=== PATIENT | female | born 1995 | race Hispanic/Latino ===

== ENCOUNTER → 2022-10-24 | Outpatient (REF) | payer SELFPAY ==
[2022-10-24 22:56] LABS: APPEARANCE, URINE CLEAR (CLEAR); BACTERIA, URINE AUTO NEGATIVE (NEGATIVE); BILIRUBIN, URINE AUTO NEGATIVE (NEGATIVE); BLOOD, URINE BLOOD NEGATIVE (NEGATIVE); COLOR, URINE YELLOW (YELLOW); GLUCOSE, URINE (UA) AUTO NEGATIVE (NEGATIVE); KETONE, URINE AUTO NEGATIVE (NEGATIVE); LEUKOCYTE ESTERASE, URINE AUTO NEGATIVE (NEGATIVE); MUCUS, URINE SMALL (NEGATIVE); NITRITE, URINE AUTO NEGATIVE (NEGATIVE); PROTEIN, URINE AUTO NEGATIVE (NEGATIVE); RBC, URINE AUTO 0 /HPF (0-3); SPECIFIC GRAVITY URINE AUTO 1.014 (1.002-1.035); SQUAMOUS EPITHELIAL CELL UR AU 1 /HPF (0-6); UROBILINOGEN, URINE AUTO 0.2 mg/dL (0.0-2.0); WBC, URINE AUTO 1 /HPF (0-3)
[2022-10-25 00:25] LABS: GC DNA AMPLIFICATION NEGATIVE (NEGATIVE)
== END ==
LOC: M LAB REF 22:46
PROVIDERS: ATTEND Physician Assistant
DX: N39.0 Urinary tract infection, site not specified (principal); Z20.2 Contact with and (suspected) exposure to infections with a predominantly sexual mode of transmission

== ENCOUNTER 2023-01-22 14:38 | Emergency (ER) | payer OTHER ==
[~2023-01-22] VITALS: Ht 162.6 cm; Wt 62.6 kg
[2023-01-22 17:38] LABS: BASO # 0.1 10^3/uL (0.0-0.2); BASO % 0.5 % (0.0-1.0); EOS % 0.3 % (0.0-3.0); HEMATOCRIT 45.6 % (36.0-47.0); HEMOGLOBIN 15.7 g/dl (12.0-15.5); LYMPH # 1.7 10^3/uL (1.5-5.0); LYMPH % 16.6 % (24.0-44.0); MEAN CORPUSCULAR HEMOGLOBIN 32.6 pg (27.0-33.0); MEAN CORPUSCULAR HGB CONC 34.4 g/dl (32.0-36.5); MEAN CORPUSCULAR VOLUME 94.8 fl (80.0-96.0); MONO # 0.4 10^3/uL (0.0-0.8); MONO % 4.2 % (2.0-8.0); NEUTROPHILS # 7.9 10^3/uL (1.5-8.5); NEUTROPHILS % 78.2 % (36.0-66.0); PLATELET COUNT, AUTOMATED 270 10^3/uL (150-450); RED BLOOD COUNT 4.81 10^6/uL (4.00-5.40); WHITE BLOOD COUNT 10.1 10^3/uL (4.0-10.0)
[2023-01-22 18:10] LABS: LIPASE 23 U/L (12-53)
[2023-01-22 18:12] LABS: ALBUMIN 4.8 G/DL (3.2-5.2); ALKALINE PHOSPHATASE 59 U/L (46-116); ALT/SGPT 56 U/L (7.0-40); AST/SGOT 26 U/L (<34); BILIRUBIN,DIRECT 0.5 MG/DL (<0.4); BILIRUBIN,TOTAL 1.3 MG/DL (0.3-1.2); BLOOD UREA NITROGEN 13 MG/DL (9-23); CALCIUM LEVEL 9.6 MG/DL (8.5-10.1); CARBON DIOXIDE LEVEL 30 MMOL/L (20-31); CHLORIDE LEVEL 106 MMOL/L (98-107); CREATININE FOR GFR 0.57 MG/DL (0.55-1.30); GLOMERULAR FILTRATION RATE > 60.0 (>60); GLUCOSE, FASTING 101 MG/DL (60-100); POTASSIUM SERUM 4.3 MMOL/L (3.5-5.1); SODIUM LEVEL 144 MMOL/L (136-145); TOTAL PROTEIN 8.1 G/DL (5.7-8.2)
[2023-01-22 18:19] LABS: HCG, SERUM QUALITATIVE NEGATIVE (NEGATIVE)
[2023-01-22 18:52] VITALS: BP 120/74; TEMP 98.7; O2SAT 99
[2023-01-22] MEDS ORDERED: ONDANSETRON 4MG 2ML VIAL IV ONE (19:10)
[2023-01-22] MEDS ORDERED: NS 1,000 ML IV ONE (19:10)
[2023-01-22] MEDS ORDERED: KETOROLAC 30 MG/ML 1ML VIAL IV ONE (19:10)
[2023-01-22] MEDS ORDERED: ISOVUE-370 76% 100ML VIAL As Ordered ONE (19:12)
[2023-01-22] MEDS ORDERED: KETO10TAB PO (20:05)
[2023-01-22] MEDS ORDERED: ONDA4TAB6 PO (20:05)
== END 2023-01-22 20:22 | disposition home or self-care (01) ==
LOC: M ED 14:38
DX: N83.201 Unspecified ovarian cyst, right side (principal); F17.290 Nicotine dependence, other tobacco product, uncomplicated
CPT/HCPCS: 74177; 80048; 80076; 83690; 84703; 85025; 96360; 96374; 99284; J1885; J2405; Q9967

== ENCOUNTER 2024-04-04 15:45 | Inpatient (IN) | payer OTHER ==
[~2024-04-04] VITALS: Ht 160 cm; Wt 100.0 kg
[~2024-04-04 15:45] MED LIST: KETO10TAB PO; ONDA-282 PO
[2024-04-04 16:17] LABS: HEMATOCRIT 42.1 % (36.0-47.0); HEMOGLOBIN 14.4 g/dl (12.0-15.5); MEAN CORPUSCULAR HEMOGLOBIN 32.1 pg (27.0-33.0); MEAN CORPUSCULAR HGB CONC 34.2 g/dl (32.0-36.5); PLATELET COUNT, AUTOMATED 241 10^3/uL (150-450); RED BLOOD COUNT 4.48 10^6/uL (4.00-5.40); WHITE BLOOD COUNT 7.3 10^3/uL (4.0-10.0)
[2024-04-04 16:51] LABS: AMPHETAMINES LEVEL URINE NEGATIVE (NEGATIVE); BARBITURATES URINE NEGATIVE (NEGATIVE)
[2024-04-04 16:53] LABS: BENZODIAZEPINES URINE NEGATIVE (NEGATIVE); CANNABINOIDS URINE NEGATIVE (NEGATIVE); COCAINE METABOLITE URINE NEGATIVE (NEGATIVE); METHADONE URINE NEGATIVE (NEGATIVE); OPIATES URINE NEGATIVE (NEGATIVE); PHENCYCLIDINE URINE NEGATIVE (NEGATIVE)
[2024-04-04 16:53] LABS: ETHYL ALCOHOL (ETHANOL) < 0.003 % (0.000-0.010)
[2024-04-04 16:54] LABS: SALICYLATE LEVEL < 3.0 MG/DL (<30)
[2024-04-04 16:55] LABS: ALBUMIN 4.5 G/DL (3.2-5.2); ALKALINE PHOSPHATASE 50 U/L (35-104); ALT/SGPT 16 U/L (7.0-40); AST/SGOT 13 U/L (<34); BILIRUBIN,DIRECT 0.1 MG/DL (<0.4); BILIRUBIN,TOTAL 0.6 MG/DL (0.3-1.2); BLOOD UREA NITROGEN 14 MG/DL (9-23); CALCIUM LEVEL 9.3 MG/DL (8.5-10.1); CARBON DIOXIDE LEVEL 26 MMOL/L (20-31); CHLORIDE LEVEL 109 MMOL/L (98-107); CREATININE FOR GFR 0.57 MG/DL (0.55-1.30); GLOMERULAR FILTRATION RATE > 60.0 (>60); GLUCOSE, FASTING 88 MG/DL (60-100); POTASSIUM SERUM 4.8 MMOL/L (3.5-5.1); SODIUM LEVEL 143 MMOL/L (136-145); TOTAL PROTEIN 7.6 G/DL (5.7-8.2)
[2024-04-04 16:58] LABS: THYROID STIMULATING HORMONE 1.515 uIU/ML (0.55-4.78)
[2024-04-04 17:46] LABS: HCG, SERUM QUALITATIVE NEGATIVE (NEGATIVE)
[2024-04-04] MEDS ORDERED: MED REC CURRENTLY UNOBTAINABLE XX SCH (18:05)
[2024-04-04] MEDS ORDERED: OLANZapine ORAL DISINTEGRATING TAB 5MG PO PRN (18:40)
[2024-04-04] MEDS ORDERED: MAALOX 30 ML SUSP *UDC PO PRN (18:40)
[2024-04-04] MEDS ORDERED: MOM 30ML SUSPENSION UDC PO PRN (18:40)
[2024-04-04] MEDS: ACETAMINOPHEN 325 MG TAB PO PRN (19:29)
[2024-04-04] MEDS: traZODone 50 MG TAB PO PRN (23:42)
[2024-04-05 00:09] VITALS: BP 121/66; TEMP 97.9; O2SAT 99
[2024-04-05 06:29] VITALS: BP 119/63; TEMP 97.3; O2SAT 100
[2024-04-05] MEDS: NICOTINE 14 MG/24 HR TRANSDERMAL TD SCH (08:26)
[2024-04-05] MEDS ORDERED: CITA20TA7 PO (09:55)
[2024-04-05] MEDS ORDERED: HOME MED LIST COMPLETE! XX SCH (10:00)
[2024-04-05 15:06] VITALS: BP 122/65; TEMP 97.7; O2SAT 98
[2024-04-05] MEDS: LORazepam 1 MG TAB PO PRN (21:12)
[2024-04-05] MEDS: MIRTAZAPINE 7.5MG PER 1/2 TABLET PO SCH (21:12)
[2024-04-06 06:35] VITALS: BP 111/58; TEMP 97.9; O2SAT 100
[2024-04-06 15:35] VITALS: BP 111/68; TEMP 98; O2SAT 99
[2024-04-06 17:21] LABS: CA15-3 ANTIGEN 10.5 U/ML (<32.4); CA19-9 TUMOR MARKER,CARBOHYDRA 13.1 U/ML (<35.0)
[2024-04-07] MEDS: diphenhydrAMINE 25MG CAP PO PRN (01:00)
[2024-04-07 06:34] VITALS: BP 113/58; TEMP 98.3; O2SAT 98
[2024-04-07] MEDS: IBUPROFEN 600MG TAB PO PRN (14:10)
[2024-04-08 06:30] VITALS: BP 118/71; TEMP 97.9; O2SAT 99
[2024-04-08] MEDS ORDERED: TRAZ-252 PO (09:28)
[2024-04-08] MEDS ORDERED: MIRT-10 PO (09:28)
== END 2024-04-08 10:54 | disposition home or self-care (01) | DRG 881 ==
LOC: EDBD 15:45 → M ED 15:45 → M ED INP 18:38 → M PSY 23:15
PROVIDERS: ADMIT Psychiatry & Neurology Neurology; ATTEND Psychiatry & Neurology Psychiatry
DX: F32.9 Major depressive disorder, single episode, unspecified (principal); R45.851 Suicidal ideations; F17.290 Nicotine dependence, other tobacco product, uncomplicated; N83.201 Unspecified ovarian cyst, right side; Z79.899 Other long term (current) drug therapy

== ENCOUNTER → 2024-04-18 | Outpatient (CLI) | payer OTHER ==
[~2024-04-18] MED LIST changes: +CITA20TA7 PO; +ISOVUE-370 76% 100ML VIAL As Ordered ONE; +MIRT-10 PO; +TRAZ-252 PO
== END ==
LOC: M RADPRO 11:52
PROVIDERS: ATTEND General Practice
DX: N97.9 Female infertility, unspecified (principal)
CPT/HCPCS: 58340; 74740; Q9967

== ENCOUNTER → 2024-04-20 | Outpatient (CLI) | payer OTHER ==
[~2024-04-20] MED LIST changes: -ISOVUE-370 76% 100ML VIAL As Ordered ONE; +PROHANCE 279.3MG/ML 15ML VIAL ONE
== END ==
LOC: M PLAIMG 11:34
PROVIDERS: ATTEND General Practice
DX: Q50.5 Embryonic cyst of broad ligament (principal); Z87.59 Personal history of other complications of pregnancy, childbirth and the puerperium

== ENCOUNTER 2024-06-13 11:20 | Emergency (ER) | payer OTHER ==
[~2024-06-13] VITALS: Ht 162.6 cm; Wt 77.7 kg
[~2024-06-13 11:20] MED LIST changes: -PROHANCE 279.3MG/ML 15ML VIAL ONE
[2024-06-13 13:03] LABS: BASO # 0.1 10^3/uL (0.0-0.2); BASO % 0.6 % (0.0-1.0); EOS # 0.1 10^3/uL (0.0-0.5); HEMATOCRIT 42.9 % (36.0-47.0); HEMOGLOBIN 14.6 g/dl (12.0-15.5); LYMPH # 2.3 10^3/uL (1.5-5.0); MEAN CORPUSCULAR HEMOGLOBIN 32.2 pg (27.0-33.0); MEAN CORPUSCULAR VOLUME 94.7 fl (80.0-96.0); MONO # 0.6 10^3/uL (0.0-0.8); MONO % 6.7 % (2.0-8.0); NEUTROPHILS % 66.5 % (36.0-66.0); PLATELET COUNT, AUTOMATED 232 10^3/uL (150-450); RED BLOOD COUNT 4.53 10^6/uL (4.00-5.40); WHITE BLOOD COUNT 9.1 10^3/uL (4.0-10.0)
[2024-06-13 13:22] LABS: HCG, SERUM QUALITATIVE NEGATIVE (NEGATIVE)
[2024-06-13 13:23] LABS: LIPASE 35 U/L (12-53)
[2024-06-13 13:24] LABS: ALBUMIN 4.3 G/DL (3.2-5.2); ALKALINE PHOSPHATASE 44 U/L (35-104); ALT/SGPT 21 U/L (7.0-40); AST/SGOT 27 U/L (<34); BILIRUBIN,DIRECT 0.1 MG/DL (<0.4); BILIRUBIN,TOTAL 0.5 MG/DL (0.3-1.2); BLOOD UREA NITROGEN 11 MG/DL (9-23); CALCIUM LEVEL 9.4 MG/DL (8.5-10.1); CARBON DIOXIDE LEVEL 28 MMOL/L (20-31); CHLORIDE LEVEL 105 MMOL/L (98-107); CREATININE FOR GFR 0.69 MG/DL (0.55-1.30); GLOMERULAR FILTRATION RATE > 60.0 (>60); GLUCOSE, FASTING 102 MG/DL (60-100); POTASSIUM SERUM 4.3 MMOL/L (3.5-5.1); SODIUM LEVEL 141 MMOL/L (136-145); TOTAL PROTEIN 7.2 G/DL (5.7-8.2)
[2024-06-13 14:09] VITALS: BP 112/69; TEMP 99.2; O2SAT 100
[2024-06-14] MEDS ORDERED: KETO10TAB PO (16:44)
== END 2024-06-13 16:02 | disposition left against medical advice (07) ==
LOC: M ED 11:20
DX: Z53.21 Procedure and treatment not carried out due to patient leaving prior to being seen by health care provider (principal)

== ENCOUNTER 2024-06-14 10:31 | Emergency (ER) | payer OTHER ==
[2024-06-14] MEDS: ACETAMINOPHEN 325 MG TAB PO ONE (14:00)
[2024-06-14 14:25] LABS: KETONE, URINE AUTO RFX NEGATIVE (NEGATIVE); LEUKOCYTE ESTERASE UR AUTO RFX NEGATIVE (NEGATIVE); MUCUS, URINE RFX SMALL (NEGATIVE); NITRITE, URINE AUTO RFX NEGATIVE (NEGATIVE); RBC, URINE AUTO RFX 1 /HPF (0-3); SQUAM EPITHELIAL CELL UR AURFX 4 /HPF (0-6); WBC, URINE AUTO RFX 1 /HPF (0-3)
[2024-06-14 15:39] LABS: Trichomonas vaginalis (AMP) NOT DETECTED (NEGATIVE)
[2024-06-14 16:03] LABS: GC DNA AMPLIFICATION NEGATIVE (NEGATIVE)
[2024-06-14] MEDS ORDERED: KETO10TAB PO (16:44)
[2024-06-14 16:46] VITALS: BP 120/72; TEMP 99.5; O2SAT 100
== END 2024-06-14 16:50 | disposition home or self-care (01) ==
LOC: M ED 10:31
DX: N83.292 Other ovarian cyst, left side (principal); R10.2 Pelvic and perineal pain; N85.00 Endometrial hyperplasia, unspecified; Z79.2 Long term (current) use of antibiotics; Z79.899 Other long term (current) drug therapy

== ENCOUNTER → 2024-09-13 | Outpatient (CLI) | payer OTHER ==
[~2024-09-13] MED LIST changes: +ESTR2TAB3 PO; +LEVO25TA5 PO; +PROHANCE 279.3MG/ML 15ML VIAL ONE; +TRAZ-186 PO
== END ==
LOC: M PLAIMG 09:47
PROVIDERS: ATTEND Physician Assistant
DX: R51.9 Headache, unspecified (principal)

== ENCOUNTER 2024-11-08 09:02 | Emergency (ER) | payer OTHER ==
[~2024-11-08] VITALS: Ht 152.4 cm; Wt 77.6 kg
[~2024-11-08 09:02] MED LIST changes: -PROHANCE 279.3MG/ML 15ML VIAL ONE
[2024-11-08] MEDS ORDERED: MULTTAB20 PO (09:11)
[2024-11-08 10:48] LABS: BASO # 0.0 10^3/uL (0.0-0.2); BASO % 0.4 % (0.0-1.0); EOS # 0.1 10^3/uL (0.0-0.5); EOS % 0.8 % (0.0-3.0); LYMPH # 1.9 10^3/uL (1.5-5.0); LYMPH % 24.9 % (24.0-44.0); MONO # 0.5 10^3/uL (0.0-0.8); MONO % 6.5 % (2.0-8.0); NEUTROPHILS # 5.2 10^3/uL (1.5-8.5); NEUTROPHILS % 67.1 % (36.0-66.0); PLATELET COUNT, AUTOMATED 217 10^3/uL (150-450)
[2024-11-08 10:51] LABS: KETONE, URINE AUTO RFX NEGATIVE (NEGATIVE); LEUKOCYTE ESTERASE UR AUTO RFX NEGATIVE (NEGATIVE); MUCUS, URINE RFX MODERATE (NEGATIVE); NITRITE, URINE AUTO RFX NEGATIVE (NEGATIVE); RBC, URINE AUTO RFX 0 /HPF (0-3); SQUAM EPITHELIAL CELL UR AURFX 3 /HPF (0-6); WBC, URINE AUTO RFX 2 /HPF (0-3)
[2024-11-08 11:22] LABS: CALCIUM LEVEL 9.3 MG/DL (8.5-10.1); CARBON DIOXIDE LEVEL 24 MMOL/L (20-31); CHLORIDE LEVEL 105 MMOL/L (98-107); CREATININE FOR GFR 0.48 MG/DL (0.55-1.30); GLOMERULAR FILTRATION RATE > 90.0 (>60); POTASSIUM SERUM 4.1 MMOL/L (3.5-5.1); SODIUM LEVEL 141 MMOL/L (136-145)
[2024-11-08 11:40] LABS: HCG, SERUM QUANTITATIVE 47549.6 MIU/ML (<4.2)
[2024-11-08 14:56] VITALS: BP 120/67; TEMP 98; O2SAT 100
== END 2024-11-08 14:57 | disposition home or self-care (01) ==
LOC: M ED 09:02
DX: O03.4 Incomplete spontaneous abortion without complication (principal); Z3A.01 Less than 8 weeks gestation of pregnancy; Z79.810 Long term (current) use of selective estrogen receptor modulators (SERMs)

== ENCOUNTER 2024-11-10 08:43 | Day surgery (SDC) | payer OTHER ==
[~2024-11-10] VITALS: Ht 162.6 cm; Wt 77.8 kg
[~2024-11-10 08:43] MED LIST changes: +MULTTAB20 PO
[2024-11-10] MEDS ORDERED: LIDOCAINE 2% 100 MG/5 ML SDV (FOR ANES.) As Ordered ONE (10:22)
[2024-11-10] MEDS ORDERED: MIDAZOLAM INJ 2 MG/2 ML VIAL As Ordered ONE (10:22)
[2024-11-10] MEDS ORDERED: dexmedeTOMIDine (4 MCG/ML) 200 MCG/50 ML BTL As Ordered ONE (10:22)
[2024-11-10] MEDS ORDERED: ONDANSETRON 4MG 2ML VIAL As Ordered ONE (10:22)
[2024-11-10] MEDS ORDERED: dexAMETHasone 4 MG/ML 1 ML VIAL As Ordered ONE (10:22)
[2024-11-10] MEDS ORDERED: KETOROLAC 30 MG/ML 1 ML VIAL As Ordered ONE (10:22)
[2024-11-10] MEDS ORDERED: LR 1,000 ML IV SCH ×2 (10:45→12:50)
[2024-11-10] MEDS ORDERED: MINI IV ONE (11:45)
[2024-11-10] MEDS ORDERED: DOXYCYCLINE HYCLATE IV ONE (11:45)
[2024-11-10] MEDS ORDERED: DEXTROSE 5% IV ONE (11:45)
[2024-11-10] MEDS: DOXYCYCLINE HYCLATE 100 MG in DEXTROSE 5% (D5W) MINI-BAG PLU 100 ML IV SCH (11:50)
[2024-11-10] MEDS ORDERED: ROCURONIUM BROMIDE 50MG/5ML VIAL As Ordered ONE (12:16)
[2024-11-10] MEDS ORDERED: LIDOCAINE 5% OINT 30 GM TUBE As Ordered ONE (12:26)
[2024-11-10] MEDS: DOXYCYCLINE HYCLATE 100 MG/10 ML VIAL As Ordered ONE (12:28)
[2024-11-10] MEDS ORDERED: SUGAMMADEX SODIUM 500 MG/5 ML VIAL As Ordered ONE (12:43)
[2024-11-10] MEDS: ONDANSETRON 4MG 2ML VIAL IV PRN (13:05)
[2024-11-10] MEDS: HYDROMORPHONE HCL 0.5 MG/0.5 ML SYRINGE IV PRN (13:06)
[2024-11-10 14:02] VITALS: BP 118/69; TEMP 97.1; O2SAT 99
== END 2024-11-10 14:06 | disposition home or self-care (01) ==
LOC: M SDC 08:43
PROVIDERS: ATTEND Obstetrics & Gynecology
DX: O02.1 Missed abortion (principal); F17.290 Nicotine dependence, other tobacco product, uncomplicated
CPT/HCPCS: 59820; 88305; J1100; J1171; J1271; J1885; J2250; J2405; J2765; J3010

== ENCOUNTER 2024-12-15 08:43 | Emergency (ER) | payer OTHER ==
[~2024-12-15] VITALS: Ht 162.6 cm; Wt 75.6 kg
[2024-12-15] MEDS ORDERED: PROP20TA72 (08:53)
[2024-12-15] MEDS ORDERED: TRAZ-252 (08:53)
[2024-12-15 09:43] LABS: BASO # 0.0 10^3/uL (0.0-0.2); BASO % 0.4 % (0.0-1.0); EOS # 0.1 10^3/uL (0.0-0.5); EOS % 1.0 % (0.0-3.0); LYMPH # 1.9 10^3/uL (1.5-5.0); LYMPH % 28.7 % (24.0-44.0); MONO # 0.4 10^3/uL (0.0-0.8); MONO % 6.1 % (2.0-8.0); NEUTROPHILS # 4.3 10^3/uL (1.5-8.5); NEUTROPHILS % 63.7 % (36.0-66.0); PLATELET COUNT, AUTOMATED 224 10^3/uL (150-450)
[2024-12-15 10:08] LABS: HCG, SERUM QUALITATIVE NEGATIVE (NEGATIVE)
[2024-12-15] MEDS: KETOROLAC 30 MG/ML 1 ML VIAL IV ONE (10:48)
[2024-12-15] MEDS: ONDANSETRON 4MG 2ML VIAL IV ONE (10:48)
[2024-12-15 11:34] VITALS: BP 108/64; TEMP 98.6; O2SAT 100
== END 2024-12-15 12:29 | disposition home or self-care (01) ==
LOC: M ED 08:43
DX: N94.6 Dysmenorrhea, unspecified (principal); D25.9 Leiomyoma of uterus, unspecified; F17.210 Nicotine dependence, cigarettes, uncomplicated; Z79.899 Other long term (current) drug therapy; Z79.810 Long term (current) use of selective estrogen receptor modulators (SERMs)
CPT/HCPCS: 76830; 76856; 84703; 85025; 86850; 86900; 86901; 93976; 96374; 99284; J1885; J2405